=== PATIENT | male | born 1985 | race Caucasian/White ===

== ENCOUNTER 2016-09-29 08:53 | Inpatient (IN) | payer OTHER ==
[~2016-09-29] VITALS: Ht 185.4 cm; Wt 87.0 kg
--- NOTE | ~2016-09-29 | TXPLANREV ---
"PATIENT: TRINY REYNA | | [facility] UNIT #: [id number] | [address] AGE/SEX: 31 M : 85 | [address] | [place] [phone] ADMIT/REG DATE: 09/29/16 | ROOM: [facility] LOC: ADTC | ADTC | Treatment Plan/Staffing Review Date: 10/13/16 Treatment plan was reviewed and determined appropriate as written: Yes Treatment plan was reviewed and the following changes/addition/deletions are necessary: Client is to continue working on treatment plan assignments. He is finishing up with feelings letters and will begin working on relapse prevention. Discharge plans were reviewed and determined appropriate as previously documented: Yes Discharge plans were reviewed and determined to be as follows: Client will discharge and return to his job. He will be recommended to attend aftercare here at [facility], as well as to get and call a sponsor on a regular basis and attend AA meetings. Other pertinent issues discussed during this staffing review include: None at this time. Staff Present: Luisa Grande PRIMARY COUNSELOR: CLARITZA Meier Client Signature Counselor Signature Date Time "
--- NOTE | ~2016-09-29 | INDIVTXPLN ---
"PATIENT: TRINY REYNA | | [facility] UNIT #: [id number] | [address] AGE/SEX: 31 M : 85 | [address] | [place] [address] ADMIT/REG DATE: 09/29/16 | ROOM: A[facility] LOC: ADTC | ADTC | Individualized Treatment Plan Date: 10/20/16 Problem Statement/Issue Identified: Client needs to identify relapse warning signs and develop a plan to deal with them as they arise. Goal: Client will learn to identify relapse triggers and make a plan of how to avoid them, so he can maintain his recovery. Objectives/Activities to achieve goal: 1. Client is to complete the Relapse Prevention packet and process it with counselor. Due Date:10/26/16 Complete: Incomplete: Client signature Date Counselor signature Date Outcome/Measurement of Progress Towards Goal: Counselor's signature Date "
--- NOTE | ~2016-09-29 | INDIVTXPLN ---
"PATIENT: TRINY REYNA | | [facility] UNIT #: [id number] | [address] AGE/SEX: 31 M : 85 | [address] | [place] [address] ADMIT/REG DATE: 09/29/16 | ROOM: A.[facility] LOC: ADTC | ADTC | Individualized Treatment Plan Date: 10/14/16 Problem Statement/Issue Identified: Client needs to identify relapse warning signs and develop a plan to deal with them as they arise. Goal: Client will learn how to identify relapse triggers and make a plan of how to avoid them. Objectives/Activities to achieve goal: 1. Client is to complete the Relapse Questionnaire and Relapse Prevention packets and process it with counselor. Due Date:10/22/16 Complete: Incomplete: Client signature Date Counselor signature Date Outcome/Measurement of Progress Towards Goal: Counselor's signature Date "
--- NOTE | ~2016-09-29 | TXPLANREV ---
"PATIENT: TRINY REYNA | | [facility] UNIT #: [id number] | [address] AGE/SEX: 31 M : 85 | [address] | [place] [phone] ADMIT/REG DATE: 09/29/16 | ROOM: [facility] LOC: ADTC | ADTC | Treatment Plan/Staffing Review Date: 10/20/16 Treatment plan was reviewed and determined appropriate as written: Yes Treatment plan was reviewed and the following changes/addition/deletions are necessary: Client is to continue working on treatment plan assignments. He will begin working on recovery maintenance. Discharge plans were reviewed and determined appropriate as previously documented: Yes Discharge plans were reviewed and determined to be as follows: Client will be recommended to do aftercare and will being seeing Anibal in outpatient treatment, along with attending group on a weekly basis. He will also be recommended to attend AA meetings, as well as to get and call a sponsor on a regular basis. Other pertinent issues discussed during this staffing review include: None at this time. Staff Present: Estefany Ramirez PRIMARY COUNSELOR: CLARITZA Meier Client Signature Counselor Signature Date Time "
--- NOTE | ~2016-09-29 | INDIVTXPLN ---
"PATIENT: TRINY REYNA | | [facility] UNIT #: [id number] | [address] AGE/SEX: 31 M : 85 | [address] | [place] [address] ADMIT/REG DATE: 09/29/16 | ROOM: [facility] LOC: ADTC | ADTC | Individualized Treatment Plan Date: 10/06/16 Problem Statement/Issue Identified: Client continues to drink, despite ongoing negative consequences, and did not know anyone to reach out to for help, so continued to drink. Goal: Client will learn how to identify negative consequences of his drinking, attend AA/NA meetings and meet men in recovery. Objectives/Activities to achieve goal: 1. Client is to complete the How to Get Started packet, process it with counselor and selected pages in group. Due Date:10/08/16 Complete: Incomplete: 2. Client is to complete Step 1, process it with counselor and selected pages in group. Due Date:10/11/16 Complete: Incomplete: 3. Client is to attend AA/NA meetings, ask for and get at least 5 names and numbers of men in recovery and share that list with counselor. Due Date:10/21/16 Complete: Incomplete: Client signature Date Counselor signature Date Outcome/Measurement of Progress Towards Goal: Counselor's signature Date "
--- NOTE | ~2016-09-29 | INDIVTXPLN ---
"PATIENT: TRINY REYNA | | [facility] UNIT #: [id number] | [address] AGE/SEX: 31 M : 85 | [address] | [place] [address] ADMIT/REG DATE: 09/29/16 | ROOM: [facility] LOC: ADTC | ADTC | Individualized Treatment Plan Date: 10/06/16 Problem Statement/Issue Identified: Client has learned to deny or stuff feelings; needs to learn to identify and process feelings in a clean/sober manner. Goal: Client will learn how to identify and express feelings in a healthy, clean/sober manner. Objectives/Activities to achieve goal: 1. Client is to write the following people a feelings letter, each separately, and process them with counselor and in family group, when able: His father, mother, and daughter. Due Date:10/12/16 Complete: Incomplete: Client signature Date Counselor signature Date Outcome/Measurement of Progress Towards Goal: Counselor's signature Date "
--- NOTE | ~2016-09-29 | RESCARESUM ---
"PATIENT: TRINY REYNA | | [facility] UNIT #: [id number] | [address] AGE/SEX: 31 M : 85 | [address] | [place] [phone] ADMIT/REG DATE: 09/29/16 | ROOM: [facility] LOC: ADTC | ADT | Summary of Residential Care Primary Counselor: Hailee JERRY Date of Admission: 09/29/16 Date of Discharge: 10/26/16 Referral Source: [facility] Primary Care Provider Prior to Admission: Self Admitting Diagnosis: 303.90 Alcohol Use Disorder, Severe; Alcohol-induced macrocytosis; Alcohol withdrawal seizure; 304.30 Cannabis Use Disorder, Moderate; Elevated blood pressure, r/o hypertension; Sleep disorder; 305.10 Tobacco Dependence; ALL PER [facility] Discharge Diagnosis: Same Goals Achieved: Manpreet was able to complete all written assignments, including Step 1, feelings letters, and relapse prevention. He gained insight to the disease concept, was elected client coleader, and was able to learn about himself. Continued Obstacles to Sobriety/Relapse Issues: Old friends, stress, and women, along with not going to AA meetings, not calling a sponsor on a regular basis, not coming to aftercare, not dealing with feelings, self-will run riot, and not learning how to work a strong program of recovery. Family Issues Addressed: Manpreet's Mom attended family education, where they were able to share feelings letters. He also addressed issues surrounding his brothers and his Dad, as well as writing feelings letters to his daughter and her Mom. Y Individual Therapy Y Group Therapy Y Educational Series on Substance Abuse Y Parents/Significant Others Attended Family Program N Acute Medical Problems During the Course of Treatment N Transferred to Hospital During the Course of Treatment Y Accepting of Substance Abuse Problem N Non-accepting of Substance Abuse Problem N Required Psychological or Psychiatric Consultation During the Course of Treatment Completed AA Step # 1 During This Level of Care Significant Incidences During Treatment: None Reason For Discharge: Y Completed Residential TX Goals and Ready For Next Level of Care N Left Tx Against Medical Advice/Treatment Goals Not Complete N Completed Residential Tx Goals But Refusing Continuing Care Recommendations N Discharged Due to Noncompliance/Treatment Goals not Completed PATIENT: TRINY REYNA | | [facility] UNIT #: [id number] | [address] AGE/SEX: 31 M : 85 | [address] | [place] [address] ADMIT/REG DATE: 09/29/16 | ROOM: [facility] LOC: ADTC | [facility] | Summary of Residential Care N Discharged Earlier Than Planned Due to: Continuing Care Plan/Recommendations: N Intensive Partial Care Y Sponsor N Partial Care Y AA Meetings/NA Meetings Y Outpatient N Co-dependency Services N Therapeutic Community N 1/[address] N Mental Health Therapy N Marriage Counseling N Other Specific Continuing Care Plan: It is recommended that Manpreet participate in outpatient treatment here at [facility] with Anibal Alanis, attend 3-5 AA/NA meetings per week, call a sponsor on a regular basis, return to his job and learn how to work a strong program of recovery. PRIMARY COUNSELOR: CLARITZA Meier"
--- NOTE | ~2016-09-29 | CLPRLASSUM ---
PATIENT: TRINY REYNA | | [facility] UNIT #: [id number] | [address] AGE/SEX: 31 M : 85 | [address] | [place] [phone] ADMIT/REG DATE: 09/29/16 | ROOM: [facility] LOC: ADTC | ADTC | Client Problem List/Assessment Summary Date: 10/06/16 Problems identified by the client: Client reported he has been drinking heavier than usual and it is starting to affect his job, and visitation with his daughter. Problems identified by significant others: Same Client's Strengths: Client identified his strengths as: He is a hard worker with good work ethics, he likes to do things right the first time and he's a leader. Problem List: Code: T Client continues to use alcohol &/or drugs despite ongoing negative consequences. Code: T Client does not "reach-out to others for help" and instead resumes using alcohol &/or drugs. 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 Code: T Client needs to identify relapse warning signs and develop a plan to deal with them as they arise. Code Alvarado: T: to be addressed during course of treatment O: problem noted, expected to resolve itself with abstinence--specific tx plan not required R: problem noted, will be referred upon discharge PRIMARY COUNSELOR: CLARITZA Meier
--- NOTE | 2016-09-29 15:00 | NUR ---
INITIAL SESSION 1 HR: Clt was oriented to tx plans, schedules and what to expect. 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 He is and has one child, but is seperated from them. He rambled on for several minutes about things that didn't make much sense, until he was stopped and asked to talk about what brought him here. He went into rambling again, so heard I will see him again tomorrow.
--- NOTE | 2016-09-29 18:46 | NUR ---
Education: 1 Hour. Client attended presentation given by [facility] AIDS/STDS/HIV. HIV testing was available.
--- NOTE | 2016-09-29 22:58 | NUR ---
Tech note: Client participated in rec, guided meditation and attended an onsite AA meeting. Client was checked into his room and gave his first intro. He was not seen by the
--- NOTE | 2016-09-30 05:29 | NUR ---
tech note: client was motionless in no distress at all bed checks.
--- NOTE | 2016-09-30 10:14 | NUR ---
Tech Notes: Client is working on Getting Started.
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
--- NOTE | 2016-09-30 13:30 | NUR ---
IS 1 HR: Processed clt's BPS. He shared about his daughter, of whom he does get to spend time w/ every other weekend. He stated he wasn't in a serious relationship w/ her mom, but she does let him be in her life. 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 Marlena advised his doc was alcohol and he was drinking a bottle of vodka a day. He was better today about rambling on, but did have to be stopped on a couple occassions. He is working on his How to Get Started pkt and was given a Step 1.
--- NOTE | 2016-09-30 16:00 | NUR ---
SPIRITUAL EDUCATION 1 HR. We started a two part education on Forgiveness today and group discussion on gao points.
--- NOTE | 2016-09-30 23:15 | NUR ---
Tech note:Client participated in rec-worked on beaded projects SE:beads
--- NOTE | 2016-09-30 23:39 | NUR ---
Education: 1 hour lecture on step 2 & 3 given by counselor
--- NOTE | 2016-10-01 04:36 | NUR ---
Bed note: client was in bed with eyes closed and no distress at all bed checks.
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
--- NOTE | 2016-10-01 09:12 | NUR ---
TRAUMA NOTE: Clt denies any trauma in his life at this time.
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
--- NOTE | 2016-10-01 14:19 | NUR ---
Education 1 Hour: Client heard a presentation on, "Marijuana."
--- NOTE | 2016-10-01 14:50 | NUR ---
Tech Note: Client participated in Spiritual Enrichment in the morning and walked in the halls for afternnon exercise. Client stated that he is working on, "How to Get Started in Treatment."
--- NOTE | 2016-10-01 16:41 | NUR ---
Education: 1hr Participated in Step 2 work group. Very involved in the group discussion.
--- NOTE | 2016-10-01 23:03 | NUR ---
Tech Note: Client participated in rec and attended A.A.Meeting.
--- NOTE | 2016-10-01 23:20 | NUR ---
Education Note: Client watched the healthy families video which lasted an hour.
--- NOTE | 2016-10-02 04:38 | NUR ---
Bed note: Client was in bed with eyes closed and no distress at all bed checks
--- NOTE | 2016-10-02 15:25 | NUR ---
PEER REVIEWS 1 HR: Clt participated in peer review process and was able to give open and honest feedback to those receiving a review.
--- NOTE | 2016-10-02 16:22 | NUR ---
Tech Note: Client watched a video "How to Sabotage Your Treatment" and is working on Step 1.
--- NOTE | 2016-10-02 23:32 | NUR ---
TECH NOTE: Client participated in guideline reading, watched tv/movies. SE: peer review
--- NOTE | 2016-10-03 04:47 | NUR ---
BED NOTE: Client was in bed, motionless with eyes closed all three bed checks.
--- NOTE | 2016-10-03 12:22 | NUR ---
PEER REVIEWS 1 HR: Clt participated in peer review process and was able to give open and honest feedback to those receiving a review.
--- NOTE | 2016-10-03 16:04 | NUR ---
Tech Note: Client went to AA mtg at [address] [place] [address]. Is working on Step 1.
--- NOTE | 2016-10-03 19:59 | NUR ---
TECH NOTE: Client played Catch Phrase for REC, attended off site AA meeting, watched TV/movies. Was redirected for inappropriate language during REC SE: AA meeting
--- NOTE | 2016-10-04 04:45 | NUR ---
Bed Note: Clt lay motionless in bed with eyes closed showing no distress at all bed checks.
--- NOTE | 2016-10-04 15:53 | NUR ---
Tech Note: Client participated in Big Book Study. Client stated that he is working on Step One. Client attended adventist.
--- NOTE | 2016-10-04 22:50 | NUR ---
TECH NOTE: Client attended AA panel, participated in community clean and watched tv/movies. SE: adrián
--- NOTE | 2016-10-05 04:23 | NUR ---
Bed Note: Clt lay motionless in bed with eyes closed showing no distress at all bed checks.
--- NOTE | 2016-10-05 10:15 | NUR ---
Tech notes: Client is working on Step 1.
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
--- NOTE | 2016-10-05 12:00 | NUR ---
Group 1.5hr/ 12:1 Clients heard peer share about guilt and many client gave feedback and related. This client was attentive.
--- NOTE | 2016-10-05 12:41 | NUR ---
Education Note: Client attended educational speaker Kit on Crossaddiction.
--- NOTE | 2016-10-05 16:00 | NUR ---
RECOVERY 101 1 HR/ Clients all brought big books, were given highlighters and shown tools they can use in the big Book on: acceptance, 1/2measures, 12 promises, living in the solution-not the problem, resentments, 2 week prayer to forgiveness, etc. Clients took turns reading and some commented and asked questions.
--- NOTE | 2016-10-05 16:09 | NUR ---
IS 1 HR: Marlena shared from his How to Get Started pkt. He did a good job on it. He grew up in a pretty normal home, altho as they got older, all of his brothers, except one, started drinking/using. The other became a classified copy control clerk. Marlena advised his Mom went thru a lot with him and his brothers, and she has turned into a huge controlling person, who nags and orders him around. He stated his Dad had to hide the fact that he drank a beer every once in awhile, or his Mom would be angry at him and nag and complain. Marlena heard Mom needs an alanon program, and that we will discuss this w/ her when she comes to visit or attend family edu.
--- NOTE | 2016-10-05 20:18 | NUR ---
Education: 1 hour lecture on feelings given by counselor
--- NOTE | 2016-10-05 23:40 | NUR ---
Tech Note: Client played a game for rec, and attended N.A.Meeting. SE: N.A.Meeting
--- NOTE | 2016-10-06 04:01 | NUR ---
bed note: client was in bed with eyes closed and no distress at all bed checks.
--- NOTE | 2016-10-06 11:30 | NUR ---
GROUP 1.5 HRS. 1:9 Group discussion included how to deal with feelings appropriately and relapse triggers. This client was mostly quiet.
--- NOTE | 2016-10-06 15:00 | NUR ---
BIG GRP 5:21/ We had a big grp to confront sleeping pills being on the unit, dishonesties, and anything else going on that needed to be addressed. Clt denied knowing someone had brought anything on the unit. He sat mostly quiet, and offered little feedback.
--- NOTE | 2016-10-06 15:14 | NUR ---
Education Note: Client heard a presentation on, "Grief."
--- NOTE | 2016-10-06 15:22 | NUR ---
Tech Note: Client particiapted in light stretching for morning exercise and walked in the halls in the afternoon. Client stated that he is working on Step One and reading the Big Book.
--- NOTE | 2016-10-07 00:05 | NUR ---
Education: 1 hour lecture given by Counselor on Step 1
--- NOTE | 2016-10-07 00:15 | NUR ---
Tech note: client worked on projects for the alumni [employer]bi for rec and attended AA meeting SE: found out daughter is coming to visit him
--- NOTE | 2016-10-07 04:15 | NUR ---
Bed Note: Clt lay motionless in bed with eyes closed showing no distress at all bed checks.
--- NOTE | 2016-10-07 10:27 | NUR ---
Tech Notes: Client is working on Step 1.
--- NOTE | 2016-10-07 13:11 | NUR ---
Group 1.5hours 1:11 Clients discussed the topic of resentments. Client shared about how he had issues with his mother being controlling of him and his father. Client shared that his father does drink but hides it from mom because she is a very pentecostal person. Student: Orly Chawla [facility]
--- NOTE | 2016-10-07 13:25 | NUR ---
Education note: Client attended education by [facility]
--- NOTE | 2016-10-07 17:55 | NUR ---
SPIRITUAL EDUCATION 1 HR. Today we discussed ways to quiet the mind and meditation and creativity.
--- NOTE | 2016-10-07 22:07 | NUR ---
tech note: client c/o cough,was given a tessalon rosanna @ [phone].
--- NOTE | 2016-10-07 22:51 | NUR ---
[employer] note: Client played a game for recreation & attended onsite NA meeting. Client was redirected by [employer] for his language. SE: Group.
--- NOTE | 2016-10-08 02:17 | NUR ---
Education: 1 Hour. Client attended "Unresolved Anger" video & discussion presented by staff.
--- NOTE | 2016-10-08 04:58 | NUR ---
BED NOTE: Client was in bed motionless with eyes closed all three bed checks.
--- NOTE | 2016-10-08 11:17 | NUR ---
Tech Note: Client participated in Spiritual Enrichment and followed programming.
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
--- NOTE | 2016-10-08 13:07 | NUR ---
Education 1 Hour: Client heard a presentation from a member of the recovery community, who shared his experience, strength and hope.
--- NOTE | 2016-10-08 16:50 | NUR ---
STEP EDUCATION/1 HR/ focus was on step 4. Discussed what step 4 was about and then each person answered if there were any things in their family history that bothers them and do they feel they are blocked in any area. This client participated.
--- NOTE | 2016-10-08 20:20 | NUR ---
Education 1HR: Clt watched video by Pam Lopez on Step 5.
--- NOTE | 2016-10-08 22:31 | NUR ---
TECH NOTE: Client played Catch Phrase for REC, participated in Guided Meditation and attended onsite AA meeting. SE: AA meeting
--- NOTE | 2016-10-09 04:23 | NUR ---
Bed Note: Clt lay motionless in bed with eyes closed showing no distress at all bed checks.
--- NOTE | 2016-10-09 11:30 | NUR ---
Group 1.5 hr/ 12:1 Client did listent to peers share GS and STep 1 packets, he was attentive.
--- NOTE | 2016-10-09 13:00 | NUR ---
PEER REVIEWS 1.25 HRS: Clt participated in peer reviews and took a risk to give open and honest feedback to those receiving a review.
--- NOTE | 2016-10-09 15:39 | NUR ---
Tech Note: Client watched a video "It Can't Happen To Me" and is working on Step 1.
--- NOTE | 2016-10-09 22:16 | NUR ---
Tech note : Client watched tv, played games and talked on the phone. SE; Peer review
--- NOTE | 2016-10-10 04:59 | NUR ---
Bed note: Client was in bed with eyes closed and no distress at all bed checks.
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
--- NOTE | 2016-10-10 15:06 | NUR ---
Tech Note: Client attended N.A.Panel and is working on Step 1 and FL's
--- NOTE | 2016-10-10 20:29 | NUR ---
tech note: client played game for recreation & attended offsite AA meeting. Client talked on the phone & watched tv. SE: Family.
--- NOTE | 2016-10-10 22:06 | NUR ---
tech note: client c/o sore throat & cough @ 5725,rosy marte was given.
--- NOTE | 2016-10-11 12:04 | HP ---
ADMIT: 09/29/2016 RM/LOC: Khurram [facility] MR#: [id number] 26[address] [facility] [address] [place] [id number] ANJEL REYNA [address] [place] [address] History and Physical SEX: M AGE: 30 : 1985 DATE OF SERVICE: CHIEF COMPLAINT: Alcohol dependency. HISTORY OF PRESENT ILLNESS: Anjel is a 30-year-old single, white male, admitted to residential level treatment at [facility] on September 29, 2016 after detox at [facility] on September 22 through the . He had went in to [facility] to detox, left, drank, relapsed, and had an alcohol withdrawal seizure around September 20. He then was readmitted on the and detoxed prior to coming to treatment. He states he came to treatment as a recommendation of his mother. Manpreet' drug of choice on admission is alcohol. He first started drinking around 15 or 16 when he would have 5 or 6 beers. Normally, he would only drink on weekends. From to , he would drink 3 to 4 times a week usually 6 to 12 beers. The last 3 or 4 years, he started drinking hard liquor and would drink up to a half of a 750 mL bottle of whiskey daily. He states the last 6 months he was drinking a full 750 mL of whiskey daily. His last drink was probably around September 19 with an alcohol withdrawal seizure likely around the . Second drug of choice is cannabis. He first started smoking pot around 15 or 16. He states he smoked it about twice a month. From to , he would smoke on a daily basis and commonly would share up to 2 or 3 blunts a day. He states the last 6 months he would only use pot less than once a month. His last use was about a month ago. He denies other significant illicit drug use. He admits to using mushrooms twice. PAST MEDICAL HISTORY: OPERATIONS: Include myringotomy tubes with left tympanoplasty on 2 occasions. ILLNESSES: None. MEDICATIONS: None. ALLERGIES: None known. SOCIAL HISTORY: Is that of a 30-year-old single, white male. 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 He chews about a can or less every day. FAMILY HISTORY: Negative for drug and alcohol problems. Noted maternal grandmother had cancer, and his father has hypertension. REVIEW OF SYSTEMS: Remarkable for some elevated blood pressures in the past and sleep disorder. Remainder of review of systems negative. ADMIT: 09/29/2016 RM/LOC: Khurram [facility] MR#: [id number] [address] [place] [id number] [facility] [place] [address] History and Physical SEX: M AGE: 30 : 1985 PHYSICAL EXAMINATION: VITAL SIGNS: He has 6 feet 1 inch with a weight of 87 kg, blood pressure 140/87 with pulse 101 and temp 97.6. GENERAL: Exam shows him to be alert, oriented, in no acute distress. HEENT: Pupils are reactive. Extraocular muscle intact. TMs normal. Throat unremarkable. NECK: Without nodes or masses. HEART: Regular without murmur. LUNGS: Clear. ABDOMEN: Soft, benign with mild hepatomegaly. GENITOURINARY AND RECTAL: Deferred. EXTREMITIES: No clubbing, cyanosis, or edema. LABORATORY DATA: Recent labs include a chemistry panel with elevated AST of 169, ALT of 176, and UA is normal, and CBC shows a macrocytosis with an MCV of 101.7. ASSESSMENT: 1. Alcohol use disorder, severe with history of alcoholic hepatitis. 2. Alcohol-induced macrocytosis. 3. Alcohol withdrawal seizure. 4. Cannabis use disorder, moderate. 5. Elevated blood pressure, rule out hypertension. 6. Sleep disorder. 7. Chewing tobacco dependency. PLAN: We will admit him to residential level treatment. We will do serial blood pressure and heart rate monitoring. Proceed with drug and alcohol abuse dependency and treatment and further evaluation and management based on his course during hospitalization. Melatonin was ordered for sleep disorder as well. Please see his hospital record for further details. Malick Caldera MD/ sarbjit JOB #: [id number] CC: Malick Caldera, Attending Physician NO FAMILY PHYSICIAN, Family Physician
--- NOTE | 2016-10-11 15:39 | NUR ---
Tech Note: Client is working on Step1. He attended mosque and had a visit. Client was also late to community meeting.
--- NOTE | 2016-10-11 22:06 | NUR ---
Tech note: Participated in community clean, attended AA panel with Parker Garcia SE; Family
--- NOTE | 2016-10-12 04:57 | NUR ---
Bed note: Client was in bed with eyes closed and no distress at all bed checks.
--- NOTE | 2016-10-12 11:30 | NUR ---
Experiential Group 1.5hr/ Clients all participated in Family Sculpturing by role-playing, relating and giving feedback. This client was involved and attentive.
--- NOTE | 2016-10-12 13:25 | NUR ---
Education note: Client attended education speaker Lida on Tobacco.
--- NOTE | 2016-10-12 14:15 | NUR ---
Tech Note: client is working on Fl's and mtg with ewelina.
--- NOTE | 2016-10-12 16:00 | NUR ---
RECOVERY 101 1 HR/ Clients all shared what they have struggled with in treatment and what helps them. This client shared how he was in denial, but his drinking progressed, drinking very heavy and now needed help, has liver damage and was shaking bad, and job still wants him back. He said treatment is like a big family.
--- NOTE | 2016-10-12 18:02 | NUR ---
Education: 1 Hour. Client attended "Forgiveness" lecture presented by staff.
--- NOTE | 2016-10-12 23:00 | NUR ---
tech note: client played a game for recreation & attended onsite NA meeting. SE: smoking education.
--- NOTE | 2016-10-13 04:33 | NUR ---
tech note: client was motinless in no distress at all bed checks.
--- NOTE | 2016-10-13 13:00 | NUR ---
A.M. 1.5 hr res group/ratio 1:8/ Group heard a grief letter, a getting started, and also discussed shame, guilt, and forgiving self. This client shared his getting started and did a good job.
--- NOTE | 2016-10-13 15:32 | NUR ---
Tech Note: Client attended programming on Relapse Prevention and is working on Feelings Letters. Client, as of this day, is client co-leader.
--- NOTE | 2016-10-13 16:29 | NUR ---
Relapse Prevention, 08/31 ration, 1.0 hours, Client attended and participated in relapse prevention education which focused on relapse triggers/issues.
--- NOTE | 2016-10-13 22:17 | NUR ---
TECH NOTE: Client attended Alumni meeting and on-site AA meeting. SE: AA meeting
--- NOTE | 2016-10-13 22:54 | NUR ---
EDUCATION NOTE: 1HR lecture on Shame given by counselor
--- NOTE | 2016-10-14 04:39 | NUR ---
Bed note: Client was in bed with eyes closed and no distress at all bed checks.
--- NOTE | 2016-10-14 10:02 | NUR ---
Tech note: Client is working on Fl's.
--- NOTE | 2016-10-14 12:44 | NUR ---
Education note: Client attended speaker Ganesh Curtis
--- NOTE | 2016-10-14 15:44 | NUR ---
IS 1 HR: Marlena shared that he hasn't started on his feelings letters yet, so heard he needs to get busy on them. WE discusssed his Step 1 and we also dscussed him returning to his job and home. He will d/c on 10/26. Ront stated he isn't sure if his parents are coming for family this week, but heard his letters need to be done. He shared about a peer driving him crazy because he thinks he's always right and this clt in turn stated he is very competitive and heard that they have the same characteristics, so heard to look at what he doesn't like in others and check himself on them.
--- NOTE | 2016-10-14 16:06 | NUR ---
SPIRITUAL EDUCATION 1 HR. Topic today was on how addiction is a disease of body mind and spirit and how the Steps fit in treating the SPIRIT. We also talked about ways to spirituality, payoffs, and how spirituality is related to both addiction and recovery.
--- NOTE | 2016-10-14 18:15 | NUR ---
Education: 1 Hour. Client attended "Boundaries" lecture presented by staff.
--- NOTE | 2016-10-14 22:05 | NUR ---
Tech note : Client played pictionary for rec and attended an onsite NA meeting. SE: Meeting with Hailee
--- NOTE | 2016-10-14 22:10 | NUR ---
tech note: client c/o level 3 back pain @ 2210,motrin 400 mg was given.
--- NOTE | 2016-10-15 05:17 | NUR ---
tech note: client was motionless in no distress at all bed checks.
--- NOTE | 2016-10-15 11:46 | NUR ---
Group 1.5 Hr Ratio 1:9/Topics today were feelings letters and an anger and hurt assignment. A client also shared how her just say no assignment went Client shared how he could relate to what peers were sharing.
--- NOTE | 2016-10-15 15:36 | NUR ---
IS 1 HR: Marlena shared about his brothers and how he gets along with them. He doesn't much get lili gw/ any of them, so he just worries about himself. Ront can get into glorifying about himself, so will need to continue working on it.
--- NOTE | 2016-10-15 15:43 | NUR ---
Tech Note: Client participated in Spiritual Enrichment in the morning and went for an outdoor walk in the afternoon. Client stated that he is working on writing Feelings Letters.
--- NOTE | 2016-10-15 16:33 | NUR ---
Education 1 Hour: Client heard a presentaion on "Wellness in Recovery."
--- NOTE | 2016-10-15 17:01 | NUR ---
FAMILY EDUCATION 3 HRS Client attended family group with his mother. Client shared about how his alcohol use caused him to be very aggressive. Client's mother shared about how she did not know about the earlier drug use because she had four boys total, so nothing ever shocked her. Student: Orly Spear
--- NOTE | 2016-10-15 23:03 | NUR ---
Tech note: Client worked on craft projects for the [employer] for rec and attended AA meeting SE:family
--- NOTE | 2016-10-16 00:08 | NUR ---
Education note: Clients watched a movie on "my attitude' by Jeff Arias.
--- NOTE | 2016-10-16 04:52 | NUR ---
Bed note; client was motionlees, with eyes closed at all bed checks.
--- NOTE | 2016-10-16 11:30 | NUR ---
Group 1.5 hr/ 11:1 Clients all got into discussion about how they found spirituality or struggle with HP concepts and a peer shared GS packet. This client was attentive.
--- NOTE | 2016-10-16 14:06 | NUR ---
PEER REVIEWS 1.25 HRS: Clt participated in peer reviews and took a risk to give open and honest feedback to those receiving a review.
--- NOTE | 2016-10-16 16:08 | NUR ---
Tech Note: Client went with group for outside walk and watched "Marijuana", by Rob Arias, for education. Clt is working on Feelings Letters.
--- NOTE | 2016-10-16 23:37 | NUR ---
Tech Note: Client read guidelines with peers. Client used phone and watched tv. He attended A.A. SE: phones and peer review
--- NOTE | 2016-10-17 05:31 | NUR ---
Bed Note: Client was motionless with eyes closed at all bed checks.
--- NOTE | 2016-10-17 15:39 | NUR ---
Tech Note: Client working on Feelings Letters.
--- NOTE | 2016-10-17 20:27 | NUR ---
Tech Note: Client played a game for rec. They also attended the A.A.Meeting at [facility] and [place]. SE: Visitation
--- NOTE | 2016-10-18 05:27 | NUR ---
Bed Note: Client was motionless with eyes closed at all bed checks.
--- NOTE | 2016-10-18 15:16 | NUR ---
Tech Note: Client participated in Big Book Study. Client stated that he is working on writing Feelings Letters.
--- NOTE | 2016-10-18 23:29 | NUR ---
Client attended A.A.Panel and helped with community clean. SE: Waking up to all of his wonderful peers.
--- NOTE | 2016-10-19 05:01 | NUR ---
Bed Note: Client was motionless with eyes closed at all bed checks.
--- NOTE | 2016-10-19 10:08 | NUR ---
Tech note: Client is working on Fl's and mtg with ewelina
--- NOTE | 2016-10-19 12:55 | NUR ---
Group 1.5 hr/ 9:1 Client did give feedback to peers sharing packet/letters.
--- NOTE | 2016-10-19 14:36 | NUR ---
Education note: Client attended speaker for education [address]
--- NOTE | 2016-10-19 21:00 | NUR ---
FAMILY EDUCATION 3 HRS., GROUP 2 HRS. 1:5 Client was accompanied by his mom. They took part in the discussion on the family roles. Client identified as lost child as a kid, scapegoat in high school and mascot on the unit. Mom identified with chief enabler however sees this as her role as a mom. She further stated that client needs to do as she says because she is the mom regardless of his age. Client shared a feelings letter with mom and also verbalized his need to set boundaries. Mom repeatedly stated client cannot "fail" or be a "failure". She becomes defensive when reminded that this is a disease, not a "failure" and stated she is a nurse. She is encouraged repeatedly to go to [facility] as she lacks understanding.
--- NOTE | 2016-10-19 21:00 | NUR ---
FAMILY EDUCATION 3 HRS., GROUP 2 HRS. 1:5 Client was accompanied by his mom. They took part in the discussion on the family roles. Client identified as mascot role as youngest child. Mom identified with chief enabler however sees this as her role as a mom. She further stated that client needs to do as she says because she is the mom regardless of his age. Client shared a feelings letter with mom and also verbalized his need to set boundaries. Mom repeatedly stated client cannot "fail" or be a "failure". She becomes defensive when reminded that this is a disease, not a "failure" and stated she is a nurse. She is encouraged repeatedly to go to [facility] as she lacks understanding.
--- NOTE | 2016-10-19 22:37 | NUR ---
TECH NOTE: Client participated in family. SE: family
--- NOTE | 2016-10-19 23:57 | NUR ---
Education: 1 Hour. Client attended "Adult Children" presentation given by staff.
--- NOTE | 2016-10-20 05:21 | NUR ---
BED NOTE: Client was in bed, motionless with eyes closed all three bed checks.
--- NOTE | 2016-10-20 11:39 | NUR ---
Jesusita res group/ratio 1:10/ Group assignments shared were step one and feelings letters. This client said he is going back home and doing aftercare and meetings.
--- NOTE | 2016-10-20 16:20 | NUR ---
Tech Note: Client attended speaker meeting, presented by Nutritional Services, and Relapse Prevention education. Client is currently working on Feelings Letters.
--- NOTE | 2016-10-20 16:25 | NUR ---
Relapse Prevention; 1.0 hours; Client attended and actively participated in relapse prevention which focused on compulsive behaviors and relapse.
--- NOTE | 2016-10-20 23:20 | NUR ---
Education note: 1 hour lecture given by counselor on "Self Esteem"
--- NOTE | 2016-10-20 23:31 | NUR ---
Tech note: Client worked on projects for the alumni [employer] for rec and attended AA meeting SEF:recieved 30 coin in AA
--- NOTE | 2016-10-21 04:10 | NUR ---
BED NOTE: Client was in bed, motionless with eyes closed all three bed checks.
--- NOTE | 2016-10-21 10:49 | NUR ---
Tech note: Client is working on BB and mtg with ewelina.
--- NOTE | 2016-10-21 11:39 | NUR ---
GROUP 1.5 HRS. 1:11 Group discussion included betraying values and effects on others as well as being honest and old behaviors especially dishonesty and keeping secrets.
--- NOTE | 2016-10-21 13:12 | NUR ---
Education note: Client attended speaker Otilio for education today.
--- NOTE | 2016-10-21 14:00 | NUR ---
IS 1 HR: Marlena shared about some things going around here, which led to him being confronted on being passive/aggressive with a couple of his male peers. He stated he would make sure he had the last word, he would sit in a chair someone "usually" sat in, and he didn't back down. He was asked if he ever thought he was bullied, and he stated maybe by a brother, but not really. He heard his actions sound bullyish. He laughed it off.
--- NOTE | 2016-10-21 19:58 | NUR ---
SPIRITUaL EDUCATION 1 HR. Today we discussed difference between spirituality and worship, and then played a spiritual challenge game where group discussed thought provoking questions on spirituality and the meaning.
--- NOTE | 2016-10-21 22:41 | NUR ---
EDUCATION NOTE: 1 HR Counselor gave a lecture on Disease Concept
--- NOTE | 2016-10-21 23:34 | NUR ---
tech note: client played Pictionary for recreation & attended onsite NA mtg. SE: NA meeting.
--- NOTE | 2016-10-22 04:09 | NUR ---
BED NOTE: Client was in bed, motionless with eyes closed all three bed checks.
--- NOTE | 2016-10-22 11:30 | NUR ---
IS 1 HR. This client was seen due to primary counselor's illness. Discussed issues with his mom and her controlling behaviors. Client is encouraged to set healthy boundaries with her. 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 Discussed assertiveness as healthier communication style. Client was confronted on his tendency to blame his mom's behavior as an excuse to drink and also gave examples of his dad drinking too in order to deal with mom. Client becomes defensive and states he does not like to call dad alcoholic. He admits dad drinks daily but "controls" it. He later stated dad hides drinking from mom and dad has liver problems and should not be drinking at all. Client will easily say he is alcoholic but does not want to say it about dad. Discussed the disease concept but client still defends dad. Client was given RELAPSE PREVENTION & LETTING GO OF THE NEED TO CONTROL.
--- NOTE | 2016-10-22 15:28 | NUR ---
Tech Note: Client participated in Spiritual Enrichment in the morning and went for an outdoor walk in the afternoon. Client followed programming.
--- NOTE | 2016-10-22 16:31 | NUR ---
Step ed./1 hr/ Focus was on step 7 "Humbly asked him to remove our shortcomings". Had them complete some questions on paper then discussed. This client participated.
--- NOTE | 2016-10-22 22:07 | NUR ---
EDUCATION NOTE 1HR: Recovery committee presented information on recovery
--- NOTE | 2016-10-22 22:10 | NUR ---
EDUCATION NOTE 1HR: Clients watched Rob Arias video on Behavior
--- NOTE | 2016-10-22 22:36 | NUR ---
TECH NOTE: Client helped by doing crafts for the dance for REC, and attended AA meeting.
--- NOTE | 2016-10-23 04:39 | NUR ---
Bed note: client was in bed moitionless with eyes closed and no distress at all bed checks.
--- NOTE | 2016-10-23 12:29 | NUR ---
GROUP 1.5 HR/ 10:1 A Peer shared about never thinking about actions/impulsive and this led to group relating and sharing. This client gave some feedback.
--- NOTE | 2016-10-23 15:55 | NUR ---
PEER REVIEWS 1.25 HRS: Clt participated in peer reviews and took a risk to give open and honest feedback to those receiving a review. Client also had a reivew done on himself. Client heard he is over confident, has a lot of anger, does not share feelings, uses sarcasm, holds onto resentments, and beats himself up. Client shared he is feeling afraid and glad.
--- NOTE | 2016-10-23 16:05 | NUR ---
Tech Note: Client watched video (The Enablers) and is working on Relapse Prevention.
--- NOTE | 2016-10-23 22:13 | NUR ---
Tech Note : Client worked crafts and projects for the dance. Client watched TV.
--- NOTE | 2016-10-24 04:35 | NUR ---
Bed note: Client was in bed with eyes closed and no distress at all bed checks.
--- NOTE | 2016-10-24 17:50 | NUR ---
Tech Note: Client attended N.A. Panel and is working on Relapse Prevention. Client also had a visit.
--- NOTE | 2016-10-24 19:07 | NUR ---
tech note: client attended offsite Alumni Dance.
--- NOTE | 2016-10-25 04:51 | NUR ---
BED NOTE: Client was in bed, motionless with eyes closed all three bed checks.
--- NOTE | 2016-10-25 16:35 | NUR ---
Tech Note: Client participated in Big Book Study. Client stated that he is working on, "Relalpse Prevention." Client received visitors in the afternoon.
--- NOTE | 2016-10-25 23:06 | NUR ---
tech note: Client attended AA Panel & participated in Community Clean. Client watched tv & was redirected to quit standing at the tech station during med pass. SE: Dance & AA Panel.
--- NOTE | 2016-10-26 04:11 | NUR ---
bed note: client was in bed with eyes closed and no distress at all bed checks.
--- NOTE | 2016-10-26 08:30 | NUR ---
FINAL SESSION 1 HR: Clt came in stating he is leaving at 10:00, so we did meet and processed his relapse prevention pkt of which he stated most of it is for after he gets out of tx a few weeks, and another part is IF he had already relapsed, so he went to education program manager and was told to just write in that it doesn't apply to him. We completed his Continued care plan, he did the survey and he was given a coin and completed thru tx.
--- NOTE | 2016-10-26 10:10 | NUR ---
DISCHARGE NOTE Client left tx was picked up by family and all personal belongings were sent with. Discharge instuctions gone over and copy given.
--- NOTE | 2016-12-06 15:28 | DS ---
ADMIT: 09/29/2016 RM/LOC: Khurram [facility] MR#: [id number] 26[address] [facility] [address] [place] [phone] ANJEL REYNA [address] [place] [address] General Discharge Summary SEX: M AGE: 30 : 1985 ADMISSION DATE: 09/29/2016 DISCHARGE DATE: 10/26/2016 INDICATION FOR HOSPITALIZATION: Anjel is a 30-year-old single, white male, admitted to residential level treatment at [place] on October 27, 2016 after detox at [facility] September 22 through the . His drug of choice on admission was alcohol. Second drug of choice is cannabis. Please see his admission H and P for the details regarding his history of present illness, past medical history, physical exam, and assessment at time of hospitalization. HOSPITAL COURSE: On admission, he was started on multivitamin and thiamine given his extensive history of alcohol abuse and dependency. Melatonin was ordered for sleep disorder. His serial blood pressure and heart rate monitoring was undertaken. His primary care counselor assigned during treatment is Hailee Faria. During treatment, he underwent individual and group therapy sessions on drug and alcohol abuse and dependency. His mother attended the family portion of his treatment program. Issues regarding his brothers and father as well as feeling letters to his daughter and her mother were written. During treatment, relapse triggers were identified and relapse prevention plan was outlined. He completed an educational series on substance abuse. He completed step 1 of Alcoholics Anonymous. He was overall accepting of substance abuse problems. Reason for discharge was completion of residential level treatment goals. Aftercare recommendations include outpatient treatment at [facility] with active AA and NA meeting involvement 3 to 5 times weekly with sponsor assignment and outpatient counseling. MEDICATIONS: At time of discharge include: 1. Protonix 40 mg daily. 2. Multivitamin 1 daily. 3. Thiamine 100 mg daily. LABORATORY AND X-RAY DATA: None indicated. ADMIT: 09/29/2016 RM/LOC: Khurram [facility] MR#: [id number] [address] [place] [id number] ANJEL REYNA [facility] [place] [address] General Discharge Summary SEX: M AGE: 30 : 1985 FINAL DISCHARGE DIAGNOSES: Include: 1. Alcohol use disorder, severe. 2. Alcoholic hepatitis. 3. Alcoholic macrocytosis. 4. Alcohol withdrawal seizure. 5. Cannabis use disorder, moderate. 6. Sleep disorder. 7. Chewing tobacco dependency. 8. Dyspepsia. PROCEDURES: Include drug and alcohol abuse dependency treatment and counseling. Please see the hospital record for the details. Malick Caldera MD/ sarbjit JOB #: [id number] CC: Malick Caldera MD, Attending Physician FAMILY PHYSICIAN, Family Physician
== END 2016-10-26 10:20 | disposition home or self-care (01) | DRG 895 ==
LOC: ADTC 08:53
PROVIDERS: ADMIT Family Medicine
PROC: HZ63ZZZ Family Counseling for Substance Abuse Treatment (ICD-10-PCS; principal; 2016-09-29)
PROC: HZ34ZZZ Individual Counseling for Substance Abuse Treatment, Interpersonal (ICD-10-PCS; principal; 2016-09-29)
PROC: HZ43ZZZ Group Counseling for Substance Abuse Treatment, 12-Step (ICD-10-PCS; principal; 2016-09-29)
DX: F10.20 Alcohol dependence, uncomplicated (principal); K70.10 Alcoholic hepatitis without ascites; F12.20 Cannabis dependence, uncomplicated; R03.0 Elevated blood-pressure reading, without diagnosis of hypertension; G47.9 Sleep disorder, unspecified; R10.13 Epigastric pain; F17.220 Nicotine dependence, chewing tobacco, uncomplicated; D75.89 Other specified diseases of blood and blood-forming organs